=== PATIENT | male | born 1985 | race Two or more races ===

== ENCOUNTER 2021-05-06 12:09 | Emergency (ER) | payer SELFPAY ==
[~2021-05-06] VITALS: Ht 175.3 cm; Wt 81.6 kg
[2021-05-06 12:13] VITALS: BP 131/94
== END 2021-05-06 13:30 | disposition left against medical advice (07) ==
LOC: ER 12:09
DX: H57.12 Ocular pain, left eye (principal); Z53.21 Procedure and treatment not carried out due to patient leaving prior to being seen by health care provider

== ENCOUNTER 2021-05-08 22:47 | Emergency (ER) | payer SELFPAY ==
[~2021-05-08] VITALS: Ht 175.3 cm; Wt 77.1 kg
[2021-05-08 22:48] VITALS: BP 125/67
[2021-05-09] MEDS ORDERED: TETRACAINE HCL 0.5% OPTH(EYE) SOLN 4ML LEFTEYE ONE (01:15)
[2021-05-09] MEDS ORDERED: FLUORESCEIN SOD OPTH TEST STRIP LEFTEYE ONE (01:15)
== END 2021-05-09 01:56 | disposition home or self-care (01) ==
LOC: ER 22:52
DX: S05.02XA Injury of conjunctiva and corneal abrasion without foreign body, left eye, initial encounter (principal); X58.XXXA Exposure to other specified factors, initial encounter; Y93.89 Activity, other specified; Y92.89 Other specified places as the place of occurrence of the external cause; Y99.8 Other external cause status

== ENCOUNTER 2021-12-09 00:35 | Emergency (ER) | payer SELFPAY ==
[~2021-12-09] VITALS: Ht 170.2 cm; Wt 70.0 kg
[2021-12-09 02:20] VITALS: BP 135/76
== END 2021-12-09 05:06 | disposition left against medical advice (07) ==
LOC: EDBD 00:35 → ER 00:48
DX: M25.561 Pain in right knee (principal); F10.129 Alcohol abuse with intoxication, unspecified; Y90.9 Presence of alcohol in blood, level not specified; Z53.29 Procedure and treatment not carried out because of patient's decision for other reasons; W19.XXXA Unspecified fall, initial encounter; Y93.89 Activity, other specified; Y92.89 Other specified places as the place of occurrence of the external cause; Y99.8 Other external cause status